=== PATIENT | female | born 1990 | race Caucasian/White ===

== ENCOUNTER 2022-06-15 08:36 | Outpatient (CLI) | payer MEDICAID ==
[~2022-06-15] VITALS: Ht 157.5 cm; Wt 73.1 kg
[2022-06-15] MEDS ORDERED: PNV-9 PO (08:58)
[2022-06-15 09:00] VITALS: BP 120/65
[2022-06-15 09:22] LABS: BILIRUBIN,URINE NEGATIVE (NEGATIVE); CLARITY,URINE CLEAR; COLOR,URINE YELLOW; GLUCOSE, URINE (UA) NEGATIVE (NEGATIVE); KETONES,URINE NEGATIVE (NEGATIVE); LEUKOCYTE ESTERASE ,URINE NEGATIVE (NEGATIVE); NITRITE,URINE NEGATIVE (NEGATIVE); PROTEIN,URINE NEGATIVE (NEGATIVE)
[2022-06-15 09:31] LABS: BACTERIA,URINE FEW /HPF
--- NOTE | 2022-06-16 08:00 | Physician Query-Final Dx ---
06/16/22 0800: Clinic Account Progress/Dx Physician Query: Please give diagnosis Please include # weeks gestation Date of Service Jun 15, 2022 at 08:36 TIFFANY SKINNER MD 06/16/22 0825: Clinic Account Progress/Dx DIAGNOSIS: Diagnosis False labor at 37 weeks gestation Jun 16, 2022 08:00 TIFFANY SKINNER MD Jun 16, 2022 08:25
== END 2022-06-15 09:21 ==
LOC: WSo 08:36 → LDRP 08:36 → WSo 09:21
PROVIDERS: ATTEND Obstetrics & Gynecology
DX: O26.893 Other specified pregnancy related conditions, third trimester (principal); Z3A.37 37 weeks gestation of pregnancy
CPT/HCPCS: 81000; G0463; 99213